=== PATIENT | male | born 1965 | race Caucasian/White ===

== ENCOUNTER 2020-05-12 08:33 | Inpatient (IN) | payer BC ==
[~2020-05-12] VITALS: Ht 182.9 cm; Wt 69.0 kg
[2020-05-12 12:15] VITALS: BP 107/75
[2020-05-12] MEDS ORDERED: BISACODYL 10 MG RECTAL RECTAL SUPPOSITORY PR PRN (13:00)
[2020-05-12] MEDS ORDERED: POLYETHYLENE GLYCOL 3350 17 GM PACKET PO PRN (13:00)
[2020-05-12] MEDS: HYDROCODONE/ACETAMINOPHEN 10-325 MG TABLET PO PRN ×3 (13:40→22:15)
[2020-05-12] MEDS ORDERED: INFLUENZA VIRUS VACCINE QVS 2020-21 (6MO+)/PF 60 MCG/0.5 ML SYRINGE IM ONE (15:15)
[2020-05-12 15:22] LABS: BASOPHILS % (AUTO) 0.4 % (0.0-2.0); HEMATOCRIT 28.6 % (41-53); HEMOGLOBIN 9.6 g/dL (13.5-17.5); LYMPHOCYTES # (AUTO) 1.1 K/uL (1.0-4.8); LYMPHOCYTES % (AUTO) 25.3 % (22.0-44.0); MEAN CORPUSCULAR HEMOGLOBIN 31.5 pg (26.0-34.0); MEAN CORPUSCULAR HGB CONC 33.5 G/dL (31.0-37.0); MEAN CORPUSCULAR VOLUME 94 fL (80-100); MONOCYTES # (AUTO) 0.6 K/uL (0.1-1.0); MONOCYTES % (AUTO) 12.4 % (2.0-9.0); NEUTROPHILS # (AUTO) 2.8 K/uL (1.8-7.7); NEUTROPHILS % (AUTO) 60.9 % (40.0-70.0); PLATELET COUNT (AUTO) 417 K/uL (150-450); RED BLOOD CELL COUNT(AUTO) 3.04 MIL/uL (4.50-5.90)
[2020-05-12 15:42] LABS: ALANINE AMINOTRANSFERASE 14 U/L (12-78); ALBUMIN 2.2 g/dL (3.4-5.0); ALKALINE PHOSPHATASE 97 U/L (46-116); ANION GAP 1 mmol/L (8-16); ASPARTATE AMINOTRANSFERASE 23 U/L (15-37); BILIRUBIN,TOTAL 0.6 mg/dL (0.1-1.0); CALCIUM, TOTAL 8.5 mg/dL (8.8-10.5); CARBON DIOXIDE 32 mmol/L (22-29); CHLORIDE 100 mmol/L (98-107); CREATININE 0.44 mg/dL (0.60-1.30); GLOMERULAR FILTR. RATE CALC > 60 mL/min (>60); GLUCOSE,RANDOM 93 mg/dL (70-110); POTASSIUM 4.6 mmol/L (3.5-5.1); SODIUM SERUM 133 mmol/L (136-145); TOTAL PROTEIN, SERUM 5.8 g/dL (6.4-8.2); UREA NITROGEN, BLOOD 8 mg/dL (7-18)
[2020-05-12] MEDS: GABAPENTIN 300 MG CAPSULE PO SCH ×2 (15:51→23:41)
[2020-05-12 16:14] VITALS: BP 110/63
[2020-05-12] MEDS: SENNA/DOCUSATE SODIUM 8.6-50 MG TABLET PO SCH (21:00)
[2020-05-12] MEDS: -LIDODERM PATCH NOTE- MISC SCH (21:00)
[2020-05-12] MEDS: POTASSIUM CHLORIDE 20 MEQ ER TABLET PO SCH (21:17)
[2020-05-12] MEDS: ASCORBIC ACID 500 MG TABLET PO SCH (21:17)
[2020-05-13 00:26] VITALS: BP 115/73
[2020-05-13 07:34] VITALS: BP 129/75
[2020-05-13] MEDS: HYDROCODONE/ACETAMINOPHEN 5-325 MG TABLET PO PRN ×4 (07:34→20:17)
[2020-05-13] MEDS: ASCORBIC ACID 500 MG TABLET PO SCH ×2 (07:58→20:16)
[2020-05-13] MEDS: MULTIVITAMINS WITH MINERALS, THERAPEUTIC TABLET PO SCH (07:58)
[2020-05-13] MEDS: ENOXAPARIN SODIUM 40 MG/0.4 ML PF SYRINGE SQ SCH (07:58)
[2020-05-13] MEDS: POTASSIUM CHLORIDE 20 MEQ ER TABLET PO SCH ×2 (07:59→20:16)
[2020-05-13] MEDS: CHOLECALCIFEROL (VIT D3) 1,000 UNITS [25 MCG] TABLET PO SCH (07:59)
[2020-05-13] MEDS: ZINC SULFATE 220 MG CAPSULE PO SCH (07:59)
[2020-05-13] MEDS: GABAPENTIN 300 MG CAPSULE PO SCH ×3 (07:59→23:30)
[2020-05-13] MEDS: LIDOCAINE 5% TRANSDERMAL PATCH TD SCH (08:00)
[2020-05-13] MEDS: SENNA/DOCUSATE SODIUM 8.6-50 MG TABLET PO SCH ×2 (08:01→20:16)
[2020-05-13 11:53] LABS: BASOPHILS % (AUTO) 0.6 % (0.0-2.0); EOSINOPHILS % (AUTO) 2.8 % (1.0-6.0); HEMATOCRIT 33.6 % (41-53); LYMPHOCYTES # (AUTO) 2.9 K/uL (1.0-4.8); LYMPHOCYTES % (AUTO) 37.9 % (22.0-44.0); MEAN CORPUSCULAR HEMOGLOBIN 30.9 pg (26.0-34.0); MEAN CORPUSCULAR HGB CONC 32.7 G/dL (31.0-37.0); MEAN CORPUSCULAR VOLUME 95 fL (80-100); MONOCYTES # (AUTO) 0.7 K/uL (0.1-1.0); MONOCYTES % (AUTO) 9.8 % (2.0-9.0); NEUTROPHILS # (AUTO) 3.7 K/uL (1.8-7.7); NEUTROPHILS % (AUTO) 48.9 % (40.0-70.0); PLATELET COUNT (AUTO) 525 K/uL (150-450); RED BLOOD CELL COUNT(AUTO) 3.55 MIL/uL (4.50-5.90); RED CELL DISTRIBUTION WIDTH 16.6 % (11.5-14.5)
[2020-05-13 14:01] LABS: C.DIFF GDH ANTIGEN, Stool Negative (Negative); C.DIFF TOXINS A&B, Stool Negative (Negative)
[2020-05-13 16:03] VITALS: BP 138/82
[2020-05-13] MEDS: -LIDODERM PATCH NOTE- MISC SCH (20:17)
[2020-05-14] VITALS: BP 104/69
[2020-05-14 07:30] VITALS: BP 116/75
[2020-05-14] MEDS: HYDROCODONE/ACETAMINOPHEN 10-325 MG TABLET PO PRN ×2 (07:33→13:02)
[2020-05-14] MEDS: POTASSIUM CHLORIDE 20 MEQ ER TABLET PO SCH ×2 (08:41→20:37)
[2020-05-14] MEDS: CHOLECALCIFEROL (VIT D3) 1,000 UNITS [25 MCG] TABLET PO SCH (08:41)
[2020-05-14] MEDS: GABAPENTIN 300 MG CAPSULE PO SCH ×3 (08:41→23:26)
[2020-05-14] MEDS: MULTIVITAMINS WITH MINERALS, THERAPEUTIC TABLET PO SCH (08:41)
[2020-05-14] MEDS: ZINC SULFATE 220 MG CAPSULE PO SCH (08:41)
[2020-05-14] MEDS: SENNA/DOCUSATE SODIUM 8.6-50 MG TABLET PO SCH ×2 (08:41→20:36)
[2020-05-14] MEDS: ASCORBIC ACID 500 MG TABLET PO SCH ×2 (08:41→20:37)
[2020-05-14] MEDS: ENOXAPARIN SODIUM 40 MG/0.4 ML PF SYRINGE SQ SCH (08:42)
[2020-05-14] MEDS: LIDOCAINE 5% TRANSDERMAL PATCH TD SCH (09:39)
[2020-05-14] MEDS: ACETAMINOPHEN 325 MG TABLET PO PRN (16:02)
[2020-05-14 16:55] VITALS: BP 117/80
[2020-05-14] MEDS: HYDROCODONE/ACETAMINOPHEN 5-325 MG TABLET PO PRN (20:37)
[2020-05-14] MEDS: -LIDODERM PATCH NOTE- MISC SCH (20:38)
[2020-05-15 00:31] VITALS: BP 115/68
[2020-05-15] MEDS: HYDROCODONE/ACETAMINOPHEN 10-325 MG TABLET PO PRN ×2 (07:36→13:16)
[2020-05-15] MEDS: GABAPENTIN 300 MG CAPSULE PO SCH ×3 (07:37→23:09)
[2020-05-15] MEDS: POTASSIUM CHLORIDE 20 MEQ ER TABLET PO SCH ×2 (07:37→20:55)
[2020-05-15] MEDS: ZINC SULFATE 220 MG CAPSULE PO SCH (07:37)
[2020-05-15] MEDS: LIDOCAINE 5% TRANSDERMAL PATCH TD SCH (07:37)
[2020-05-15] MEDS: ASCORBIC ACID 500 MG TABLET PO SCH ×2 (07:37→20:55)
[2020-05-15] MEDS: CHOLECALCIFEROL (VIT D3) 1,000 UNITS [25 MCG] TABLET PO SCH (07:37)
[2020-05-15] MEDS: MULTIVITAMINS WITH MINERALS, THERAPEUTIC TABLET PO SCH (07:37)
[2020-05-15] MEDS: ENOXAPARIN SODIUM 40 MG/0.4 ML PF SYRINGE SQ SCH (07:38)
[2020-05-15] MEDS: SENNA/DOCUSATE SODIUM 8.6-50 MG TABLET PO SCH ×2 (07:41→20:56)
[2020-05-15 08:00] VITALS: BP 117/73
[2020-05-15 16:00] VITALS: BP 119/84
[2020-05-15] MEDS: HYDROCODONE/ACETAMINOPHEN 5-325 MG TABLET PO PRN (20:55)
[2020-05-15] MEDS: -LIDODERM PATCH NOTE- MISC SCH (20:55)
[2020-05-16 00:02] VITALS: BP 129/76
[2020-05-16 08:15] VITALS: BP 115/76
[2020-05-16] MEDS: GABAPENTIN 300 MG CAPSULE PO SCH ×3 (08:58→23:30)
[2020-05-16] MEDS: SENNA/DOCUSATE SODIUM 8.6-50 MG TABLET PO SCH ×2 (08:58→20:20)
[2020-05-16] MEDS: POTASSIUM CHLORIDE 20 MEQ ER TABLET PO SCH ×2 (08:58→20:14)
[2020-05-16] MEDS: ZINC SULFATE 220 MG CAPSULE PO SCH (08:59)
[2020-05-16] MEDS: CHOLECALCIFEROL (VIT D3) 1,000 UNITS [25 MCG] TABLET PO SCH (08:59)
[2020-05-16] MEDS: MULTIVITAMINS WITH MINERALS, THERAPEUTIC TABLET PO SCH (08:59)
[2020-05-16] MEDS: ENOXAPARIN SODIUM 40 MG/0.4 ML PF SYRINGE SQ SCH (08:59)
[2020-05-16] MEDS: ASCORBIC ACID 500 MG TABLET PO SCH ×2 (08:59→20:14)
[2020-05-16] MEDS: LIDOCAINE 5% TRANSDERMAL PATCH TD SCH (08:59)
[2020-05-16] MEDS: HYDROCODONE/ACETAMINOPHEN 10-325 MG TABLET PO PRN ×2 (09:00→13:13)
[2020-05-16 16:00] VITALS: BP 116/75
[2020-05-16] MEDS: ACETAMINOPHEN 325 MG TABLET PO PRN ×2 (16:03→20:15)
[2020-05-16] MEDS: -LIDODERM PATCH NOTE- MISC SCH (20:20)
[2020-05-17 00:30] VITALS: BP 114/65
[2020-05-17 07:25] VITALS: BP 127/81
[2020-05-17] MEDS: HYDROCODONE/ACETAMINOPHEN 10-325 MG TABLET PO PRN ×2 (07:31→12:52)
[2020-05-17] MEDS: MULTIVITAMINS WITH MINERALS, THERAPEUTIC TABLET PO SCH (08:05)
[2020-05-17] MEDS: POTASSIUM CHLORIDE 20 MEQ ER TABLET PO SCH ×2 (08:05→20:29)
[2020-05-17] MEDS: ZINC SULFATE 220 MG CAPSULE PO SCH (08:05)
[2020-05-17] MEDS: CHOLECALCIFEROL (VIT D3) 1,000 UNITS [25 MCG] TABLET PO SCH (08:06)
[2020-05-17] MEDS: LIDOCAINE 5% TRANSDERMAL PATCH TD SCH (08:06)
[2020-05-17] MEDS: GABAPENTIN 300 MG CAPSULE PO SCH ×3 (08:06→22:56)
[2020-05-17] MEDS: ENOXAPARIN SODIUM 40 MG/0.4 ML PF SYRINGE SQ SCH (08:06)
[2020-05-17] MEDS: ASCORBIC ACID 500 MG TABLET PO SCH ×2 (08:06→20:28)
[2020-05-17] MEDS: SENNA/DOCUSATE SODIUM 8.6-50 MG TABLET PO SCH ×2 (08:15→20:50)
[2020-05-17] MEDS: ACETAMINOPHEN 325 MG TABLET PO PRN ×2 (15:28→20:28)
[2020-05-17 15:30] VITALS: BP 123/79
[2020-05-17] MEDS: -LIDODERM PATCH NOTE- MISC SCH (20:29)
[2020-05-18] VITALS: BP 109/65
[2020-05-18 07:24] VITALS: BP 123/77
[2020-05-18 08:02] LABS: BASOPHILS % (AUTO) 0.9 % (0.0-2.0); HEMATOCRIT 27.1 % (41-53); HEMOGLOBIN 8.9 g/dL (13.5-17.5); LYMPHOCYTES # (AUTO) 1.7 K/uL (1.0-4.8); LYMPHOCYTES % (AUTO) 45.2 % (22.0-44.0); MEAN CORPUSCULAR HEMOGLOBIN 30.9 pg (26.0-34.0); MEAN CORPUSCULAR HGB CONC 32.8 G/dL (31.0-37.0); MEAN CORPUSCULAR VOLUME 94 fL (80-100); MONOCYTES # (AUTO) 0.6 K/uL (0.1-1.0); MONOCYTES % (AUTO) 14.7 % (2.0-9.0); NEUTROPHILS # (AUTO) 1.4 K/uL (1.8-7.7); NEUTROPHILS % (AUTO) 37.2 % (40.0-70.0); PLATELET COUNT (AUTO) 535 K/uL (150-450); RED BLOOD CELL COUNT(AUTO) 2.88 MIL/uL (4.50-5.90); RED CELL DISTRIBUTION WIDTH 16.4 % (11.5-14.5)
[2020-05-18] MEDS: ASCORBIC ACID 500 MG TABLET PO SCH ×2 (08:19→20:10)
[2020-05-18] MEDS: ZINC SULFATE 220 MG CAPSULE PO SCH (08:19)
[2020-05-18] MEDS: POTASSIUM CHLORIDE 20 MEQ ER TABLET PO SCH ×2 (08:19→20:10)
[2020-05-18] MEDS: GABAPENTIN 300 MG CAPSULE PO SCH ×3 (08:20→23:33)
[2020-05-18] MEDS: LIDOCAINE 5% TRANSDERMAL PATCH TD SCH (08:20)
[2020-05-18] MEDS: SENNA/DOCUSATE SODIUM 8.6-50 MG TABLET PO SCH ×2 (08:20→20:14)
[2020-05-18] MEDS: CHOLECALCIFEROL (VIT D3) 1,000 UNITS [25 MCG] TABLET PO SCH (08:20)
[2020-05-18] MEDS: ENOXAPARIN SODIUM 40 MG/0.4 ML PF SYRINGE SQ SCH (08:20)
[2020-05-18] MEDS: MULTIVITAMINS WITH MINERALS, THERAPEUTIC TABLET PO SCH (08:20)
[2020-05-18] MEDS: HYDROCODONE/ACETAMINOPHEN 10-325 MG TABLET PO PRN (08:21)
[2020-05-18 08:32] LABS: ALANINE AMINOTRANSFERASE 13 U/L (12-78); ALBUMIN 2.3 g/dL (3.4-5.0); ALKALINE PHOSPHATASE 109 U/L (46-116); ANION GAP 5 mmol/L (8-16); ASPARTATE AMINOTRANSFERASE 20 U/L (15-37); BILIRUBIN,TOTAL 0.4 mg/dL (0.1-1.0); CALCIUM, TOTAL 9.1 mg/dL (8.8-10.5); CARBON DIOXIDE 30 mmol/L (22-29); CHLORIDE 103 mmol/L (98-107); CREATININE 0.68 mg/dL (0.60-1.30); GLOMERULAR FILTR. RATE CALC > 60 mL/min (>60); GLUCOSE,RANDOM 90 mg/dL (70-110); POTASSIUM 3.8 mmol/L (3.5-5.1); SODIUM SERUM 138 mmol/L (136-145); TOTAL PROTEIN, SERUM 5.4 g/dL (6.4-8.2); UREA NITROGEN, BLOOD 9 mg/dL (7-18)
[2020-05-18] MEDS: ACETAMINOPHEN 325 MG TABLET PO PRN ×2 (16:19→20:11)
[2020-05-18 16:34] VITALS: BP 135/85
[2020-05-18] MEDS: -LIDODERM PATCH NOTE- MISC SCH (20:13)
[2020-05-19 00:11] VITALS: BP 108/55
[2020-05-19 07:07] LABS: EOSINOPHILS % (AUTO) 1.8 % (1.0-6.0); HEMOGLOBIN 9.4 g/dL (13.5-17.5); LYMPHOCYTES # (AUTO) 1.2 K/uL (1.0-4.8); LYMPHOCYTES % (AUTO) 35.9 % (22.0-44.0); MEAN CORPUSCULAR HEMOGLOBIN 31.4 pg (26.0-34.0); MEAN CORPUSCULAR HGB CONC 33.4 G/dL (31.0-37.0); MEAN CORPUSCULAR VOLUME 94 fL (80-100); MONOCYTES # (AUTO) 0.5 K/uL (0.1-1.0); MONOCYTES % (AUTO) 14.1 % (2.0-9.0); NEUTROPHILS # (AUTO) 1.5 K/uL (1.8-7.7); NEUTROPHILS % (AUTO) 47.2 % (40.0-70.0); PLATELET COUNT (AUTO) 581 K/uL (150-450); RED BLOOD CELL COUNT(AUTO) 2.99 MIL/uL (4.50-5.90); RED CELL DISTRIBUTION WIDTH 16.7 % (11.5-14.5)
[2020-05-19] MEDS: MULTIVITAMINS WITH MINERALS, THERAPEUTIC TABLET PO SCH (08:19)
[2020-05-19] MEDS: CHOLECALCIFEROL (VIT D3) 1,000 UNITS [25 MCG] TABLET PO SCH (08:19)
[2020-05-19] MEDS: ZINC SULFATE 220 MG CAPSULE PO SCH (08:19)
[2020-05-19] MEDS: GABAPENTIN 300 MG CAPSULE PO SCH ×3 (08:19→22:54)
[2020-05-19 08:20] VITALS: BP 114/80
[2020-05-19] MEDS: ASCORBIC ACID 500 MG TABLET PO SCH ×2 (08:20→20:49)
[2020-05-19] MEDS: ENOXAPARIN SODIUM 40 MG/0.4 ML PF SYRINGE SQ SCH (08:20)
[2020-05-19] MEDS: HYDROCODONE/ACETAMINOPHEN 10-325 MG TABLET PO PRN (08:20)
[2020-05-19] MEDS: LIDOCAINE 5% TRANSDERMAL PATCH TD SCH (08:21)
[2020-05-19] MEDS: SENNA/DOCUSATE SODIUM 8.6-50 MG TABLET PO SCH ×2 (08:21→20:49)
[2020-05-19] MEDS: POTASSIUM CHLORIDE 20 MEQ ER TABLET PO SCH ×2 (08:23→20:49)
[2020-05-19 15:46] VITALS: BP 113/77
[2020-05-19] MEDS: ACETAMINOPHEN 325 MG TABLET PO PRN ×2 (15:46→21:09)
[2020-05-19] MEDS: -LIDODERM PATCH NOTE- MISC SCH (20:48)
[2020-05-19 22:59] VITALS: BP 110/64
[2020-05-20 08:20] VITALS: BP 122/72
[2020-05-20] MEDS: POTASSIUM CHLORIDE 20 MEQ ER TABLET PO SCH ×2 (08:46→20:35)
[2020-05-20] MEDS: MULTIVITAMINS WITH MINERALS, THERAPEUTIC TABLET PO SCH (08:46)
[2020-05-20] MEDS: ZINC SULFATE 220 MG CAPSULE PO SCH (08:46)
[2020-05-20] MEDS: LIDOCAINE 5% TRANSDERMAL PATCH TD SCH (08:46)
[2020-05-20] MEDS: ENOXAPARIN SODIUM 40 MG/0.4 ML PF SYRINGE SQ SCH (08:46)
[2020-05-20] MEDS: GABAPENTIN 300 MG CAPSULE PO SCH ×3 (08:47→23:23)
[2020-05-20] MEDS: SENNA/DOCUSATE SODIUM 8.6-50 MG TABLET PO SCH ×2 (08:47→20:36)
[2020-05-20] MEDS: CHOLECALCIFEROL (VIT D3) 1,000 UNITS [25 MCG] TABLET PO SCH (08:47)
[2020-05-20] MEDS: ASCORBIC ACID 500 MG TABLET PO SCH ×2 (08:47→20:35)
[2020-05-20] MEDS: ACETAMINOPHEN 325 MG TABLET PO PRN ×2 (08:51→20:45)
[2020-05-20 16:00] VITALS: BP 105/69
[2020-05-20] MEDS: -LIDODERM PATCH NOTE- MISC SCH (20:35)
[2020-05-21 00:02] VITALS: BP 120/69
[2020-05-21 08:00] VITALS: BP 105/69
[2020-05-21] MEDS: MULTIVITAMINS WITH MINERALS, THERAPEUTIC TABLET PO SCH (08:03)
[2020-05-21] MEDS: GABAPENTIN 300 MG CAPSULE PO SCH ×3 (08:03→23:18)
[2020-05-21] MEDS: POTASSIUM CHLORIDE 20 MEQ ER TABLET PO SCH ×2 (08:03→20:25)
[2020-05-21] MEDS: ASCORBIC ACID 500 MG TABLET PO SCH ×2 (08:03→20:25)
[2020-05-21] MEDS: ENOXAPARIN SODIUM 40 MG/0.4 ML PF SYRINGE SQ SCH (08:04)
[2020-05-21] MEDS: CHOLECALCIFEROL (VIT D3) 1,000 UNITS [25 MCG] TABLET PO SCH (08:04)
[2020-05-21] MEDS: LIDOCAINE 5% TRANSDERMAL PATCH TD SCH (08:04)
[2020-05-21] MEDS: ZINC SULFATE 220 MG CAPSULE PO SCH (08:04)
[2020-05-21] MEDS: SENNA/DOCUSATE SODIUM 8.6-50 MG TABLET PO SCH ×2 (08:05→20:31)
[2020-05-21] MEDS: HYDROCODONE/ACETAMINOPHEN 10-325 MG TABLET PO PRN (08:17)
[2020-05-21 16:00] VITALS: BP 106/73
[2020-05-21] MEDS: ACETAMINOPHEN 325 MG TABLET PO PRN (20:29)
[2020-05-21] MEDS: -LIDODERM PATCH NOTE- MISC SCH (20:29)
[2020-05-21 23:23] VITALS: BP 121/70
[2020-05-22 08:01] VITALS: BP 108/74
[2020-05-22] MEDS: POTASSIUM CHLORIDE 20 MEQ ER TABLET PO SCH ×2 (08:27→20:05)
[2020-05-22] MEDS: CHOLECALCIFEROL (VIT D3) 1,000 UNITS [25 MCG] TABLET PO SCH (08:27)
[2020-05-22] MEDS: ASCORBIC ACID 500 MG TABLET PO SCH ×2 (08:27→20:05)
[2020-05-22] MEDS: MULTIVITAMINS WITH MINERALS, THERAPEUTIC TABLET PO SCH (08:27)
[2020-05-22] MEDS: GABAPENTIN 300 MG CAPSULE PO SCH ×3 (08:27→23:35)
[2020-05-22] MEDS: HYDROCODONE/ACETAMINOPHEN 10-325 MG TABLET PO PRN (08:28)
[2020-05-22] MEDS: LIDOCAINE 5% TRANSDERMAL PATCH TD SCH (08:28)
[2020-05-22] MEDS: ENOXAPARIN SODIUM 40 MG/0.4 ML PF SYRINGE SQ SCH (08:28)
[2020-05-22] MEDS: ZINC SULFATE 220 MG CAPSULE PO SCH (08:28)
[2020-05-22] MEDS: SENNA/DOCUSATE SODIUM 8.6-50 MG TABLET PO SCH ×2 (08:29→20:09)
[2020-05-22] MEDS: ACETAMINOPHEN 325 MG TABLET PO PRN ×2 (15:28→20:06)
[2020-05-22 15:30] VITALS: BP 121/82
[2020-05-22] MEDS: -LIDODERM PATCH NOTE- MISC SCH (20:05)
[2020-05-23 00:02] VITALS: BP 121/68
[2020-05-23 07:02] LABS: BASOPHILS % (AUTO) 1.3 % (0.0-2.0); EOSINOPHILS % (AUTO) 1.1 % (1.0-6.0); HEMATOCRIT 27.3 % (41-53); HEMOGLOBIN 9.4 g/dL (13.5-17.5); LYMPHOCYTES # (AUTO) 1.4 K/uL (1.0-4.8); MEAN CORPUSCULAR HEMOGLOBIN 31.8 pg (26.0-34.0); MEAN CORPUSCULAR HGB CONC 34.4 G/dL (31.0-37.0); MEAN CORPUSCULAR VOLUME 93 fL (80-100); MONOCYTES # (AUTO) 0.5 K/uL (0.1-1.0); NEUTROPHILS # (AUTO) 1.5 K/uL (1.8-7.7); NEUTROPHILS % (AUTO) 43.6 % (40.0-70.0); PLATELET COUNT (AUTO) 581 K/uL (150-450); RED BLOOD CELL COUNT(AUTO) 2.95 MIL/uL (4.50-5.90); RED CELL DISTRIBUTION WIDTH 16.1 % (11.5-14.5)
[2020-05-23] MEDS: LIDOCAINE 5% TRANSDERMAL PATCH TD SCH (08:13)
[2020-05-23] MEDS: ASCORBIC ACID 500 MG TABLET PO SCH ×2 (08:14→20:40)
[2020-05-23] MEDS: GABAPENTIN 300 MG CAPSULE PO SCH ×3 (08:14→23:26)
[2020-05-23] MEDS: ZINC SULFATE 220 MG CAPSULE PO SCH (08:14)
[2020-05-23] MEDS: CHOLECALCIFEROL (VIT D3) 1,000 UNITS [25 MCG] TABLET PO SCH (08:14)
[2020-05-23 08:15] VITALS: BP 114/82
[2020-05-23] MEDS: POTASSIUM CHLORIDE 20 MEQ ER TABLET PO SCH ×2 (08:15→20:40)
[2020-05-23] MEDS: ACETAMINOPHEN 325 MG TABLET PO PRN ×3 (08:15→20:40)
[2020-05-23] MEDS: MULTIVITAMINS WITH MINERALS, THERAPEUTIC TABLET PO SCH (08:15)
[2020-05-23] MEDS: SENNA/DOCUSATE SODIUM 8.6-50 MG TABLET PO SCH ×2 (08:15→20:40)
[2020-05-23] MEDS: ENOXAPARIN SODIUM 40 MG/0.4 ML PF SYRINGE SQ SCH (08:15)
[2020-05-23] MEDS ORDERED: ZINC220C14 PO (10:30)
[2020-05-23] MEDS ORDERED: MULT-711 PO (10:30)
[2020-05-23] MEDS ORDERED: CHOL100018 PO (10:30)
[2020-05-23] MEDS ORDERED: GABA-1181 PO (10:30)
[2020-05-23] MEDS ORDERED: ASCO500 PO (10:30)
[2020-05-23] MEDS ORDERED: POTA20TA83 PO (10:30)
[2020-05-23 16:01] VITALS: BP 106/70
[2020-05-23] MEDS: -LIDODERM PATCH NOTE- MISC SCH (20:41)
[2020-05-24 00:14] VITALS: BP 116/71
[2020-05-24] MEDS: LIDOCAINE 5% TRANSDERMAL PATCH TD SCH (08:58)
[2020-05-24] MEDS: SENNA/DOCUSATE SODIUM 8.6-50 MG TABLET PO SCH ×3 (08:59→20:44)
[2020-05-24] MEDS: GABAPENTIN 300 MG CAPSULE PO SCH ×3 (08:59→23:21)
[2020-05-24] MEDS: ENOXAPARIN SODIUM 40 MG/0.4 ML PF SYRINGE SQ SCH (08:59)
[2020-05-24 09:00] VITALS: BP 118/74
[2020-05-24] MEDS: POTASSIUM CHLORIDE 20 MEQ ER TABLET PO SCH ×2 (09:00→20:38)
[2020-05-24] MEDS: ACETAMINOPHEN 325 MG TABLET PO PRN (09:56)
[2020-05-24] MEDS: CHOLECALCIFEROL (VIT D3) 1,000 UNITS [25 MCG] TABLET PO SCH (09:56)
[2020-05-24] MEDS: ASCORBIC ACID 500 MG TABLET PO SCH ×2 (09:56→20:39)
[2020-05-24] MEDS: ZINC SULFATE 220 MG CAPSULE PO SCH (09:56)
[2020-05-24] MEDS: MULTIVITAMINS WITH MINERALS, THERAPEUTIC TABLET PO SCH (09:56)
[2020-05-24 13:36] LABS: APPEARANCE,URINE CLEAR (CLEAR); BILIRUBIN,URINE NEGATIVE (NEGATIVE); GLUCOSE, URINE (UA) NEGATIVE (NEGATIVE); KETONES,URINE NEGATIVE (NEGATIVE); LEUKOCYTE ESTERASE ,URINE NEGATIVE (NEGATIVE); NITRATE,URINE NEGATIVE (NEGATIVE); OCCULT BLOOD,URINE NEGATIVE (NEGATIVE); PH,URINE 6.5 (5.0-8.0); PROTEIN,URINE NEGATIVE (NEGATIVE); UROBILINOGEN,URINE 0.2 mg/dL (<=1.0)
[2020-05-24] MEDS ORDERED: ASPI-728 PO (14:22)
[2020-05-24 16:56] VITALS: BP 118/67
[2020-05-24] MEDS: -LIDODERM PATCH NOTE- MISC SCH (20:39)
[2020-05-25 00:13] VITALS: BP 122/64
[2020-05-25 07:33] LABS: ALANINE AMINOTRANSFERASE 15 U/L (12-78); ALBUMIN 2.5 g/dL (3.4-5.0); ALKALINE PHOSPHATASE 135 U/L (46-116); ANION GAP 6 mmol/L (8-16); ASPARTATE AMINOTRANSFERASE 15 U/L (15-37); BILIRUBIN,TOTAL 0.2 mg/dL (0.1-1.0); CALCIUM, TOTAL 9.3 mg/dL (8.8-10.5); CARBON DIOXIDE 31 mmol/L (22-29); CHLORIDE 103 mmol/L (98-107); CREATININE 0.55 mg/dL (0.60-1.30); GLOMERULAR FILTR. RATE CALC > 60 mL/min (>60); GLUCOSE,RANDOM 89 mg/dL (70-110); POTASSIUM 4.1 mmol/L (3.5-5.1); SODIUM SERUM 140 mmol/L (136-145); TOTAL PROTEIN, SERUM 5.6 g/dL (6.4-8.2); UREA NITROGEN, BLOOD 9 mg/dL (7-18)
[2020-05-25] MEDS: LIDOCAINE 5% TRANSDERMAL PATCH TD SCH (08:44)
[2020-05-25 08:45] VITALS: BP 118/73
[2020-05-25] MEDS: ZINC SULFATE 220 MG CAPSULE PO SCH (08:45)
[2020-05-25] MEDS: MULTIVITAMINS WITH MINERALS, THERAPEUTIC TABLET PO SCH (08:45)
[2020-05-25] MEDS: GABAPENTIN 300 MG CAPSULE PO SCH (08:45)
[2020-05-25] MEDS: CHOLECALCIFEROL (VIT D3) 1,000 UNITS [25 MCG] TABLET PO SCH (08:45)
[2020-05-25] MEDS: ASCORBIC ACID 500 MG TABLET PO SCH (08:45)
[2020-05-25] MEDS: POTASSIUM CHLORIDE 20 MEQ ER TABLET PO SCH (08:45)
[2020-05-25] MEDS: ENOXAPARIN SODIUM 40 MG/0.4 ML PF SYRINGE SQ SCH (08:46)
[2020-05-25] MEDS: SENNA/DOCUSATE SODIUM 8.6-50 MG TABLET PO SCH (08:46)
== END 2020-05-25 12:00 | disposition home health service (06) | DRG 536 ==
LOC: 2WR 12:07
PROVIDERS: ADMIT Nurse Practitioner Family; ATTEND Physical Medicine & Rehabilitation
DX: S72.142A Displaced intertrochanteric fracture of left femur, initial encounter for closed fracture (principal); M25.552 Pain in left hip; M25.562 Pain in left knee; M21.371 Foot drop, right foot; D64.89 Other specified anemias; W19.XXXA Unspecified fall, initial encounter; R26.9 Unspecified abnormalities of gait and mobility
CPT/HCPCS: 82271; 87081; 87324; 87449; 97110; 97112; 97116; 97161; 97166; 97530; 97535; 99366; J1650